=== PATIENT | male | born 1950 | race Caucasian/White ===

== ENCOUNTER 2021-07-26 14:24 | Outpatient (CLI) | payer MEDICARE, BC | END 2021-07-26 14:25 | disposition home or self-care (01) | LOC: CSHMRI 14:24 | PROVIDERS: ATTEND Internal Medicine Hematology & Oncology | DX: C43.4 Malignant melanoma of scalp and neck (principal); C79.31 Secondary malignant neoplasm of brain; Z98.890 Other specified postprocedural states; D33.3 Benign neoplasm of cranial nerves | CPT/HCPCS: 70553; 82565 ==

== ENCOUNTER 2021-11-16 08:16 | Outpatient (CLI) | payer MEDICARE, BC | END 2021-11-16 08:17 | disposition home or self-care (01) | LOC: CSHCT 08:16 | PROVIDERS: ATTEND Internal Medicine Hematology & Oncology | DX: C43.4 Malignant melanoma of scalp and neck (principal) | CPT/HCPCS: 71260; 82565 ==

== ENCOUNTER 2025-01-12 08:45 | Outpatient (CLI) | payer MEDICARE, BC ==
[2025-01-12] MEDS ORDERED: Iopamidol 300 61% 100 ML VIAL FS ONE (10:29)
== END 2025-01-12 08:46 | disposition home or self-care (01) ==
LOC: CSHCT 08:45
PROVIDERS: ATTEND Internal Medicine Hematology & Oncology
DX: C43.4 Malignant melanoma of scalp and neck (principal); D37.2 Neoplasm of uncertain behavior of small intestine; K63.89 Other specified diseases of intestine; R59.0 Localized enlarged lymph nodes; C78.7 Secondary malignant neoplasm of liver and intrahepatic bile duct
CPT/HCPCS: 36415; 71260; 74177; 82565